=== PATIENT | female | born 1995 | race Caucasian/White ===

== ENCOUNTER → 2016-12-31 | Outpatient (CLI) | payer OTHER ==
[2016-12-31 19:58] LABS: Basophils % (A) 1 %; CH 28.4; CHCM 32.7; Eosinophils # (A) 0.1 k/uL (0-0.7); Eosinophils % (A) 2 %; HCT 44.3 % (34.0-46.0); HDW 2.55; HGB 14.1 gm/dL (11.4-16.0); Luc # (Auto) 0.11; Luc % (Auto) 2; Lymphocytes # (A) 1.5 k/uL (1.0-4.8); Lymphocytes % (A) 21 %; MCH 27.8 pg (25.0-35.0); MCHC 31.8 g/dL (31.0-37.0); MCV 87.5 fL (80.0-100.0); Monocytes # (A) 0.5 k/uL (0-1.0); Monocytes % (A) 6 %; Neutrophils # (A) 5.2 k/uL (1.3-7.7); Neutrophils % (A) 70 %; RBC 5.07 m/uL (3.80-5.40); RDW 13.3 % (11.5-15.5); WBC 7.5 k/uL (3.8-10.6); WBC (Perox) 7.73
[2016-12-31 20:14] LABS: ALT 45 U/L (9-52); AST 28 U/L (14-36); Alkaline Phosphatase 68 U/L (38-126); Anion Gap 10 mmol/L; Blood Urea Nitrogen 10 mg/dL (7-17); Calcium 9.5 mg/dL (8.4-10.2); Carbon Dioxide 25 mmol/L (22-30); Chloride 105 mmol/L (98-107); Cholesterol 188 mg/dL (<200); Glucose 89 mg/dL (74-99); HDL Cholesterol 54 mg/dL (40-60); Non-African American GFR(MDRD) >60 (>60 ml/min/1.73 sqM); Potassium 4.4 mmol/L (3.5-5.1); Sodium 140 mmol/L (137-145); Total Bilirubin 0.5 mg/dL (0.2-1.3); Total Protein 7.4 g/dL (6.3-8.2); Triglycerides 169 mg/dL (<150)
== END | disposition home or self-care (01) ==
LOC: MMGSC 12:17
PROVIDERS: ATTEND Family Medicine
DX: Z00.00 Encounter for general adult medical examination without abnormal findings (principal)
CPT/HCPCS: 36415; 80053; 80061; 84439; 84443; 85025

== ENCOUNTER → 2017-02-11 | Outpatient (CLI) | payer OTHER | END | disposition home or self-care (01) | LOC: MMGSC 12:24 | PROVIDERS: ATTEND Family Medicine | DX: E03.9 Hypothyroidism, unspecified (principal) | CPT/HCPCS: 36415; 84439; 84443 ==

== ENCOUNTER 2019-10-05 14:23 | Emergency (ER) | payer OTHER, BC ==
[2019-10-05 14:47] VITALS: BP 141/85
[2019-10-05] MEDS ORDERED: ACETAMINOPHEN TAB 500 MG TAB PO STA (15:27)
[2019-10-05] MEDS ORDERED: IBUPROFEN 600 MG TAB PO STA (15:27)
--- NOTE | 2019-10-05 15:48 | XR ---
EXAMINATION TYPE: XR chest 2V DATE OF EXAM: 10/05/2019 COMPARISON: 02/12/2013 HISTORY: Cough TECHNIQUE: Frontal and lateral views of the chest are obtained. FINDINGS: Right perihilar consolidation. Remainder the lungs are clear. Suboptimal lung volumes. Car diomediastinal silhouette is within normal limits. No pneumothorax or pleural effusion. Osseous struc tures appear intact. IMPRESSION: Right perihilar airspace disease likely represents pneumonia. Follow-up x-ray after rea tment is recommended to ensure resolution.
[2019-10-05] MEDS ORDERED: cefTRIAXone 1,000 MG VIAL (IM USE) IM STA (16:09)
[2019-10-05] MEDS ORDERED: AZITHROMYCIN 500 MG TAB PO STA (16:09)
[2019-10-05] MEDS ORDERED: methylPREDNISolone SOD SUCCI 125 MG/2 ML VIAL IM ONE (16:09)
[2019-10-05 16:11] VITALS: PULSE 103; RESP 18; TEMP 100
--- NOTE | 2019-10-05 16:14 | ED ---
URI HPI - General Chief Complaint: Upper Respiratory Infection Stated Complaint: Dizziness, cough Time Seen by Provider: 10/05/19 14:50 Source: patient, RN notes reviewed, old records reviewed Mode of arrival: ambulatory Limitations: no limitations - History of Present Illness Initial Comments: 24 year old female with fever, chills, lightheadedness and productive cough. No past medical history or sick contacts. No treatment for fever yet today. MD Complaint: fever, cough Onset/Timin -: days(s) Severity: moderate Severity scale (1-10): 4 Improves With: OTC cold medicine Worsens With: deep breaths Associated Symptoms: fever, chills, myalgias, diaphoresis, cough Treatments Prior to Arrival: none - Related Data Previous Rx's Medication Instructions Recorded Albuterol Inhaler [Ventolin Hfa 1 - 2 puff INHALATION RT-Q6H PRN 10/05/19 Inhaler] #1 inhaler Azithromycin [Zithromax Z-pack] 250 mg PO DIRECTED #6 tab 10/05/19 methylPREDNISolone Dose Pack 4 mg PO DIRECTED #21 package 10/05/19 [Medrol Dose Pack] Allergies Allergy/AdvReac Type Severity Reaction Status Date / Time No Known Allergies Allergy Verified 10/05/19 14:47 Review of Systems ROS Statement: Those systems with pertinent positive or pertinent negative responses have been documented in the HPI. ROS Other: All systems not noted in ROS Statement are negative. Past Medical History Past Medical History: Thyroid Disorder History of Any Multi-Drug Resistant Organisms: None Reported Past Surgical History: No Surgical Hx Reported Past Psychological History: No Psychological Hx Reported Smoking Status: Never smoker Past Alcohol Use History: Occasional Past Drug Use History: Marijuana General Exam - General Exam Comments Initial Comments: 24 year old female, no distress. Limitations: no limitations General appearance: alert, in no apparent distress Head exam: Present: atraumatic, normocephalic, normal inspection Eye exam: Present: normal appearance, PERRL, EOMI. Absent: scleral icterus, conjunctival injection, periorbital swelling ENT exam: Present: normal exam, mucous membranes moist Neck exam: Present: normal inspection. Absent: tenderness, meningismus, lymphadenopathy Respiratory exam: Present: normal lung sounds bilaterally, other (cough). Absent: respiratory distress, wheezes, rales, rhonchi, stridor Cardiovascular Exam: Present: regular rate, normal rhythm, normal heart sounds. Absent: systolic murmur, diastolic murmur, rubs, gallop, clicks GI/Abdominal exam: Present: soft, normal bowel sounds. Absent: distended, tenderness, guarding, rebound, rigid Neurological exam: Present: alert, oriented X3, CN II-XII intact Psychiatric exam: Present: normal affect, normal mood Skin exam: Present: warm, dry, intact, normal color. Absent: rash Course Vital Signs 10/05/19 10/05/19 14:45 16:10 Temperature 102.7 F H 100.0 F H Pulse Rate 113 H 103 H Respiratory 20 18 Rate Blood Pressure 141/85 O2 Sat by Pulse 99 98 Oximetry Medical Decision Making - Medical Decision Making 24 year old female, 1 day of fever and cough. Given motrin and tylenol, and CXR. Flu testing is negative. CXR shows concern for pneumonia. Given IM solumedrol, rocephin, and discussed DC with azithromycin. Discussed patient follow up with PCP and return parameters discussed. - Lab Data Lab Results 10/05/19 Range/Units 15:11 Influenza Type A RNA Not Detected (Not Detectd) Influenza Type B (PCR) Not Detected (Not Detectd) - Radiology Data Radiology results: report reviewed Right perihilar airspace disease likely represents pneumonia. Follow-up chest x-ray after treatment is recommended to ensure resolution. Disposition Clinical Impression: Pneumonia Disposition: HOME SELF-CARE Condition: Good Instructions (If sedation given, give patient instructions): Upper Respiratory Infection (ED) Additional Instructions: Please use medication as discussed. Please follow up with family doctor if symptoms have not improved over the next two days. Please return to the emergency room if your symptoms increase or worsen or for any other concerns. Prescriptions: methylPREDNISolone Dose Pack [Medrol Dose Pack] 4 mg PO DIRECTED #21 package Albuterol Inhaler [Ventolin Hfa Inhaler] 1 - 2 puff INHALATION RT-Q6H PRN #1 inhaler PRN Reason: Shortness Of Breath Azithromycin [Zithromax Z-pack] 250 mg PO DIRECTED #6 tab Is patient prescribed a controlled substance at d/c from ED?: No Referrals: Kindra Knight MD [Primary Care Provider] - 1-2 days Time of Disposition: 16:12
== END 2019-10-05 16:34 | disposition home or self-care (01) ==
LOC: EC 14:23
DX: J18.9 Pneumonia, unspecified organism (principal); R42 Dizziness and giddiness
CPT/HCPCS: 87502; 71046; 99284; 96372 ×2; J2930; J0696

== ENCOUNTER → 2019-12-07 | Outpatient (CLI) | payer OTHER, BC ==
--- NOTE | 2019-12-07 12:09 | XR ---
EXAMINATION TYPE: XR shoulder limited LT DATE OF EXAM: 12/07/2019 CLINICAL HISTORY: Left shoulder pain TECHNIQUE: Two views of the left shoulder are obtained. COMPARISON: None. FINDINGS: There is no acute fracture/dislocation evident in the left shoulder. The acromioclavicula r and glenohumeral joint spaces appear within normal limits. The visualized ribs are intact and unre markable. IMPRESSION: There is no acute fracture or dislocation in the left shoulder.
== END | disposition home or self-care (01) ==
LOC: RADXRMAIN 11:51
PROVIDERS: ATTEND Family Medicine
DX: M25.512 Pain in left shoulder (principal)